=== PATIENT | female | born 1975 | race Hispanic/Latino ===

== ENCOUNTER 2022-02-20 20:27 | Emergency (ER) | payer MEDICAID ==
[2022-02-20 20:53] VITALS: BP 168/90
== END 2022-02-20 22:09 | disposition home or self-care (01) ==
LOC: EDH 20:27
DX: S90.822A Blister (nonthermal), left foot, initial encounter (principal); R03.0 Elevated blood-pressure reading, without diagnosis of hypertension; X58.XXXA Exposure to other specified factors, initial encounter; Y93.89 Activity, other specified; Y92.89 Other specified places as the place of occurrence of the external cause; Y99.8 Other external cause status

== ENCOUNTER 2023-04-12 23:53 | Emergency (ER) | payer MEDICAID ==
[~2023-04-12] VITALS: Ht 160 cm; Wt 63.0 kg
[2023-04-12 23:53] VITALS: BP 125/95
== END 2023-04-13 00:04 | disposition left against medical advice (07) ==
LOC: EDH 23:53
DX: F19.10 Other psychoactive substance abuse, uncomplicated (principal); Z53.21 Procedure and treatment not carried out due to patient leaving prior to being seen by health care provider
CPT/HCPCS: 99281